=== PATIENT | male | born 1940 | race Two or more races ===

== ENCOUNTER 2018-05-13 18:44 | Inpatient (IN) | payer MEDICARE, BC, MEDICAID ==
--- NOTE | 2018-05-13 19:01 | ED Physician Chart ---
ED Chief Complaint/HPI - Patient Information Allergies:: Allergies Allergy/AdvReac Type Severity Reaction Status Date / Time hydrocodone Allergy Verified 05/13/18 18:52 Penicillins Allergy Verified 05/13/18 18:52 tetracycline Allergy Verified 05/13/18 18:52 <Imani Ballard - Last Filed: 05/13/18 18:58> - Patient Information Date Seen:: 05/13/18 Time Seen:: 19:40 Chief Complaint:: depression History of Present Illness:: 77 yr old male with hx of diabetes parkinsons dz who is in a rehab facility [facility] with complaints of wrist slashes bilaterally and depression pt states his is mean and the kids do not visit him at the rehab place Allergies:: Allergies Allergy/AdvReac Type Severity Reaction Status Date / Time hydrocodone Allergy Verified 05/13/18 18:52 Penicillins Allergy Verified 05/13/18 18:52 tetracycline Allergy Verified 05/13/18 18:52 Vitals:: Vital Signs - 8 hr 05/13/18 18:53 Temp 97.4 F HR 77 RR 17 BP 143/58 O2 Sat % 98 <Kiara Canales - Last Filed: 05/13/18 20:06> ED Review of Systems - Review of Systems General/Constitutional: No fever Skin: Skin lesions (slashes wrists) Head: No headache Eyes: No loss of vision ENT: No earache Neck: No neck pain Cardio Vascular: No chest pain Pulmonary: No SOB GI: No nausea G/U: No dysuria Musculoskeletal: No bone or joint pain Psychiatric: Depression, Suicidal ideation Hematopoietic: No bruising Allergic/Immuno: No urticaria Neurological: No syncope <Kiara Canales - Last Filed: 05/13/18 20:06> ED Past Medical History - Past Medical History Past Medical History: HTN, DM, CAD Surgical History: CABG <Kiara Canales - Last Filed: 05/13/18 20:06> ED Physical Exam - Physical Examination General/Constitutional: Well-developed, well-nourished Head: Atraumatic Eyes: Lids, conjuctiva normal Neck: Nontender Respiratory: Nl effort/Exclusion, Clear to Auscultation Cardio Vascular: RRR GI: No tenderness/rebounding/guarding : No CVA tenderness Extremities: No tenderness or effusion Neuro/Psych: Alert/oriented <Kiara Canales - Last Filed: 05/13/18 20:06> ED Labs/Radiology/EKG Results - Lab Results Results: Laboratory Tests 05/13/18 05/13/18 19:30 19:30 WBC 6.7 RBC 4.61 Hgb 14.4 Hct 44.1 MCV 95.8 MCH 31.3 H MCHC Differential 32.7 RDW 14.7 Plt Count 215 MPV 7.1 Neutrophils % 68.8 Lymphocytes % 18.6 L Monocytes % 8.7 Eosinophils % 2.4 Basophils % 1.5 Sodium 134 L Potassium 4.0 Chloride 101 Carbon Dioxide 24.3 Anion Gap 12.7 BUN 21 Creatinine 0.6 L Est GFR ( Amer) TNP Est GFR (Non-Af Amer) TNP BUN/Creatinine Ratio 35.0 Glucose 134 H Calcium 9.4 Phosphorus 3.0 Magnesium 1.8 L Total Bilirubin 0.3 AST 12 L ALT 5 L Alkaline Phosphatase 81 Total Protein 6.6 Albumin 4.0 L Globulin 2.6 Albumin/Globulin Ratio 1.5 Acetaminophen < 10.0 L <Kiara Canales - Last Filed: 05/13/18 20:06> ED Assessment - Assessment General Assessment: EKG from 18:47:43 p.m. on 05/13/2018: normal sinus rhythm, flipped t wave in AVR and V1. <Imani Ballard - Last Filed: 05/13/18 18:58> ED Septic Shock - . Is Septic Shock (SBP<90, OR Lactate>4 mmol\L) present?: No <Imani Ballard - Last Filed: 05/13/18 18:58> - . Is Septic Shock (SBP<90, OR Lactate>4 mmol\L) present?: No - <6hrs of presentation: Vital Signs: Vital Signs - 8 hr 05/13/18 18:53 Temp 97.4 F HR 77 RR 17 BP 143/58 O2 Sat % 98 <Kiara Canales - Last Filed: 05/13/18 20:06> ED Reassessment (Disposition) - Diagnosis Diagnosis:: Suicidal ideation. Suicidal attempt <Imani Ballard - Last Filed: 05/13/18 18:58> - Reassessment Reassessment Condition:: Improved - Patient Disposition Discharge/Transfer:: Acute Care w/in this hosp <Kiara Canales - Last Filed: 05/13/18 20:06>
[2018-05-13 19:50] LABS: % BASOPHILS 1.5 % (0.0-2.0); % EOSINOPHILS 2.4 % (0.0-5.0); % LYMPHOCYTES 18.6 % (20.0-50.0); % MONOCYTES 8.7 % (2.0-10.0); % NEUTROPHILS 68.8 % (40.0-80.0); BASOPHILE ABSOLUTE 0.1 Th/cumm (0-0.2); EOSINOPHILE ABSOLUTE 0.2 Th/cmm (0.1-0.4); HEMATOCRIT 44.1 % (41.0-60); HEMOGLOBIN 14.4 gm/dL (12-16); LYMPHOCYTE ABSOLUTE 1.2 Th/cmm (1.5-3.0); MEAN CELL VOLUME 95.8 fl (80-99); MEAN CORPUSCULAR HEMOGLOBIN 31.3 pg (27.0-31.0); MEAN CORPUSCULAR HGB CONC 32.7 pg (28.0-36.0); MEAN PLATELET VOLUME 7.1 fl; MONOCYTE ABSOLUTE 0.6 Th/cmm (0.3-1.0); NEUTROPHILE ABSOLUTE 4.6 Th/cmm (1.8-8.0); PLATELET COUNT 215 Th/cmm (150-400); RED BLOOD COUNT 4.61 Mil/cmm (3.80-5.80); RED CELL DISTRIBUTION WIDTH 14.7 % (11.5-20.0); WHITE BLOOD COUNT 6.7 Th/cmm (4.8-10.8)
[2018-05-13 19:56] LABS: ACETAMINOPHEN < 10.0 ug/mL (10.0-30.0); ALB/GLOB RATIO 1.5 (1.0-1.8); ALKALINE PHOSPHATASE 81 U/L (34-104); ANION GAP 12.7 (7.0-16.0); BILIRUBIN,TOTAL 0.3 mg/dL (0.3-1.0); BUN - UREA NITROGEN 21 mg/dL (7-25); CALCIUM SERUM 9.4 mg/dL (8.6-10.3); CARBON DIOXIDE 24.3 mEq/L (21.0-31.0); CHLORIDE 101 mEq/L (98-107); CREATININE - SERUM 0.6 mg/dL (0.7-1.3); GLUCOSE 134 mg/dL (70-105); MAGNESIUM 1.8 mg/dL (1.9-2.7); SGOT 12 U/L (13-39); SGPT/ALT 5 U/L (7-52); SODIUM SERUM 134 mEq/L (136-145); TOTAL PROTEIN,SERUM 6.6 gm/dL (6.0-8.3)
[2018-05-13 20:52] LABS: URINE SOURCE CLEAN C
[2018-05-13 21:01] LABS: URINE BILIRUBIN NEGATIVE (NEGATIVE); URINE BLOOD NEGATIVE (NEGATIVE); URINE GLUCOSE (UA) >=1000 mg/dL (NEGATIVE); URINE KETONE NEGATIVE (NEGATIVE); URINE LEUKOCYTE ESTERASE NEGATIVE (NEGATIVE); URINE MICROSCOPIC INDICATED? YES; URINE NITRATE NEGATIVE (NEGATIVE); URINE PH 6.5 (4.6 - 8.0); URINE PROTEIN NEGATIVE (NEGATIVE); URINE UROBILINOGEN 0.2 E.U./dL (0.2 - 1.0)
[2018-05-13 21:39] LABS: AMPHETAMINE URINE NEGATIVE (NEGATIVE); BARBITURATES URINE NEGATIVE (NEGATIVE); BENZODIAZEPINES QUAL URINE NEGATIVE (NEGATIVE); CANNABINOID THC NEGATIVE (NEGATIVE); COCAINE METABOLITE QUAL URINE NEGATIVE (NEGATIVE); METHADONE URINE NEGATIVE (NEGATIVE); METHAMPHETAMINES QUAL URINE NEGATIVE (NEGATIVE); OPIATES (MORPHINE) QUAL. URINE NEGATIVE (NEGATIVE); PHENCYCLIDINE (PCP) URINE NEGATIVE (NEGATIVE); TRICYCLICS (TCA) QUAL. URINE NEGATIVE (NEGATIVE)
[2018-05-13 21:40] LABS: URINE CLARITY CLEAR (CLEAR); URINE COLOR YELLOW
[2018-05-13 21:43] LABS: URINE BACTERIA OCCASIONAL /hpf (NONE SEEN); URINE EPITHELIAL CELLS OCCASIONAL /lpf (FEW); URINE WBC 0-2 /hpf (0-5)
[2018-05-13 22:48] VITALS: BP 144/82
[2018-05-14] MEDS ORDERED: Magnesium Hydroxide (MOM) 30 mL UDC PO PRN (01:32)
[2018-05-14] MEDS: INSULIN ASPART SLIDING SCALE 100 UNITS/ML UNIT SUBQ SCH ×2 (06:30→16:04)
[2018-05-14 07:28] LABS: CHOLESTEROL 159 mg/dL (<200); HDL -HIGH DENSITY LIPOPROTEIN 39 mg/dL (23-92); TRIGLYCERIDES 89 mg/dL (<150)
[2018-05-14] MEDS ORDERED: INSULIN ASPART, RECOMBINANT 100 UNITS/ML SUBQ SCH (07:30)
[2018-05-14] MEDS ORDERED: CANAGLIFLOZIN 100 MG PO SCH (09:00)
[2018-05-14] MEDS ORDERED: Non-Formulary Item 1 EA (Amino Acids/Protein Hydrolys [Pro-Stat Awc Liquid] 30 ML) PO SCH (09:00)
[2018-05-14] MEDS: Rivastigmine 4.6 mg/24 hr Tdm TD SCH (09:59)
[2018-05-14] MEDS: Aspirin 81mg Chewable Tab PO SCH (09:59)
--- NOTE | 2018-05-14 19:13 | History & Physical ---
ADMIT DATE: 05/14/2018 HISTORY OF PRESENT ILLNESS: A 77-year-old male patient with a history of diabetes, history of Parkinson's who came from [facility] complaining of wrist slashes bilaterally, depression, and the patient was admitted. Also, known to have a history of hypertension, diabetes, coronary artery disease, and history of . PHYSICAL EXAMINATION: GENERAL: Well-nourished, well-developed male patient. VITAL SIGNS: Stable. HEAD: Normal. ENT: Normal. NECK: Supple, nontender. LUNGS: Clear. CARDIOVASCULAR: S1, S2 heard. ABDOMEN: Soft. Bowel sounds are heard. DIAGNOSTIC DATA: EKG normal sinus rhythm. DIAGNOSES: Suicidal attempt, suicidal ideation, severe depression. PLAN: The patient is being admitted to the Geropsych Unit, where I will be following the patient along with the psychiatrist. JOB# [id number]
--- NOTE | 2018-05-15 00:08 | Psychiatric Evaluation ---
DATE OF SERVICE: JUSTIFICATION FOR HOSPITALIZATION: The patient cut his wrists in a suicide effort. CHIEF COMPLAINT: "I was very depressed." HISTORY OF PRESENT ILLNESS: A 77-year-old male with history of diabetes, Parkinson's disease and on previous psych admissions was in a rehab facility at [facility]. He cut his wrists bilaterally due to severe depression. His telling him to "do what the Veterans are doing alluding to suicide." The patient notes hopelessness, despair "my really hurt me," noting that "she hates my guts." The patient is feeling lonely, feeling hopeless, feeling helpless. The patient noting his just wants "my pension money." Sleep is fair. Appetite is fair, endorsing psychological distress, turmoil. PAST PSYCHIATRIC HISTORY: He has been feeling depressed for quite some time. FAMILY HISTORY: Noncontributory. SOCIAL HISTORY: Born in [place], for 40 years. He has 4 children, one of whom is unfortunately. No drugs, no alcohol, no tobacco. The patient had been in the rehabilitation. MEDICATIONS: Noted. MENTAL STATUS EXAMINATION: Stated age. Fair eye contact. Speech within normal limits. Mood depressed. Affect withdrawn. Thought processes were grossly linear. ASSESSMENT: The patient status post suicide effort. No HI. No current psychotic symptoms. Insight diminished. Judgment diminished. Impulse control poor. PROVISIONAL DIAGNOSES: Major depression, single, severe, also anxiety, unspecified. Under medical please see full H and P. ESTIMATED LENGTH OF STAY: 5-7 days. ASSESSMENT: The patient tried to hurt himself, cut himself, remains depressed, upset, discord with , feeling hopeless, helpless and despairing. PLAN: We will continue to monitor and initiate antidepressant medications. Treatment plan includes group as well as milieu therapy. CONDITION FOR DISCHARGE: Improved mood, improved affect, cessation of any SI, better coping. JOB# [id number]
[2018-05-15] MEDS: INSULIN ASPART SLIDING SCALE 100 UNITS/ML UNIT SUBQ SCH ×2 (06:32→18:40)
[2018-05-15] MEDS: Escitalopram Oxalate 5 mg Tab PO SCH (09:49)
[2018-05-15] MEDS: Aspirin 81mg Chewable Tab PO SCH (09:51)
[2018-05-15] MEDS: Rivastigmine 4.6 mg/24 hr Tdm TD SCH (09:52)
--- NOTE | 2018-05-15 15:50 | Progress Notes ---
DATE: 05/15/2018 SUBJECTIVE: A 77-year-old male cut his wrists in a suicide for noting he wanted to "get back to his ." Notes that she is very cruel with him and wants his money and his house and he refuses to divorce her, believing that if he tries to divorce her, lose his assets whether she tries to divorce him that " ____ I will be able to retain them." I let him know that this is likely not true given the laws revolving around community property, but he does not believe me. The patient does need okay sleep, okay appetite, convinced that is after the house and after his jail. "My hates me." The patient feels lonely, upset, still angry. PAST PSYCHIATRIC HISTORY: Depression. SOCIAL HISTORY: Noted. MEDICATIONS: Noted. MENTAL STATUS EXAMINATION: Stated age. Fair eye contact. Appearing depressed, withdrawn, ongoing concerns about suicidality. PLAN: We will continue to monitor dose and titrate medications. Ongoing concerns about safety given his very recent suicide effort, ongoing anger toward . JOB# [id number]
--- NOTE | 2018-05-15 20:11 | Internal Medicine Prog Note ---
Internal Medicine Subjective - Subjective Service Date: 05/15/18 Patient seen and examined:: with staff Patient is:: awake Per staff patient has:: no adverse event Internal Medicine Objective - Results Result Diagrams: 05/13/18 19:30 05/13/18 19:30 Recent Labs: Laboratory Last Values WBC 6.7 Th/cmm (4.8-10.8) 05/13/18 19:30 RBC 4.61 Mil/cmm (3.80-5.80) 05/13/18 19:30 Hgb 14.4 gm/dL (12-16) 05/13/18 19:30 Hct 44.1 % (41.0-60) 05/13/18 19:30 MCV 95.8 fl (80-99) 05/13/18 19:30 MCH 31.3 pg (27.0-31.0) H 05/13/18 19:30 MCHC Differential 32.7 pg (28.0-36.0) 05/13/18 19:30 RDW 14.7 % (11.5-20.0) 05/13/18 19:30 Plt Count 215 Th/cmm (150-400) 05/13/18 19:30 MPV 7.1 fl 05/13/18 19:30 Neutrophils % 68.8 % (40.0-80.0) 05/13/18 19:30 Lymphocytes % 18.6 % (20.0-50.0) L 05/13/18 19:30 Monocytes % 8.7 % (2.0-10.0) 05/13/18 19:30 Eosinophils % 2.4 % (0.0-5.0) 05/13/18 19:30 Basophils % 1.5 % (0.0-2.0) 05/13/18 19:30 Sodium 134 mEq/L (136-145) L 05/13/18 19:30 Potassium 4.0 mEq/L (3.5-5.1) 05/13/18 19:30 Chloride 101 mEq/L (98-107) 05/13/18 19:30 Carbon Dioxide 24.3 mEq/L (21.0-31.0) 05/13/18 19:30 Anion Gap 12.7 (7.0-16.0) 05/13/18 19:30 BUN 21 mg/dL (7-25) 05/13/18 19:30 Creatinine 0.6 mg/dL (0.7-1.3) L 05/13/18 19:30 Est GFR ( Amer) TNP 05/13/18 19:30 Est GFR (Non-Af Amer) TNP 05/13/18 19:30 BUN/Creatinine Ratio 35.0 05/13/18 19:30 Glucose 134 mg/dL (70-105) H 05/13/18 19:30 POC Glucose 83 MG/DL (70 - 105) 05/14/18 05:51 Calcium 9.4 mg/dL (8.6-10.3) 05/13/18 19:30 Phosphorus 3.0 mg/dL (2.5-5.0) 05/13/18 19:30 Magnesium 1.8 mg/dL (1.9-2.7) L 05/13/18 19:30 Total Bilirubin 0.3 mg/dL (0.3-1.0) 05/13/18 19:30 AST 12 U/L (13-39) L 05/13/18 19:30 ALT 5 U/L (7-52) L 05/13/18 19:30 Alkaline Phosphatase 81 U/L (34-104) 05/13/18 19:30 Total Protein 6.6 gm/dL (6.0-8.3) 05/13/18 19:30 Albumin 4.0 gm/dL (4.2-5.5) L 05/13/18 19:30 Globulin 2.6 gm/dL 05/13/18 19:30 Albumin/Globulin Ratio 1.5 (1.0-1.8) 05/13/18 19:30 Triglycerides 89 mg/dL (<150) 05/14/18 06:30 Cholesterol 159 mg/dL (<200) 05/14/18 06:30 LDL Cholesterol Direct 116 mg/dL (75-193) 05/14/18 06:30 HDL Cholesterol 39 mg/dL (23-92) 05/14/18 06:30 Urine Source CLEAN C 05/13/18 20:30 Urine Color YELLOW 05/13/18 20:30 Urine Clarity CLEAR (CLEAR) 05/13/18 20:30 Urine pH 6.5 (4.6 - 8.0) 05/13/18 20:30 Ur Specific [place] 1.015 (1.005-1.030) 05/13/18 20:30 Urine Protein NEGATIVE mg/dL (NEGATIVE) 05/13/18 20:30 Urine Glucose (UA) >=1000 mg/dL (NEGATIVE) H 05/13/18 20:30 Urine Ketones NEGATIVE mg/dL (NEGATIVE) 05/13/18 20:30 Urine Blood NEGATIVE (NEGATIVE) 05/13/18 20:30 Urine Nitrate NEGATIVE (NEGATIVE) 05/13/18 20:30 Urine Bilirubin NEGATIVE (NEGATIVE) 05/13/18 20:30 Urine Urobilinogen 0.2 E.U./dL (0.2 - 1.0) 05/13/18 20:30 Ur Leukocyte Esterase NEGATIVE (NEGATIVE) 05/13/18 20:30 Urine WBC 0-2 /hpf (0-5) 05/13/18 20:30 Ur Epithelial Cells OCCASIONAL /lpf (FEW) 05/13/18 20:30 Urine Bacteria OCCASIONAL /hpf (NONE SEEN) 05/13/18 20:30 Urine Mucus FEW /lpf (FEW) 05/13/18 20:30 Urine Opiates Screen NEGATIVE (NEGATIVE) 05/13/18 20:30 Urine Methadone Screen NEGATIVE (NEGATIVE) 05/13/18 20:30 Acetaminophen < 10.0 ug/mL (10.0-30.0) L 05/13/18 19:30 Ur Barbiturates Screen NEGATIVE (NEGATIVE) 05/13/18 20:30 Ur Tricyclics Screen NEGATIVE (NEGATIVE) 05/13/18 20:30 Ur Phencyclidine Scrn NEGATIVE (NEGATIVE) 05/13/18 20:30 Amphetamines Screen NEGATIVE (NEGATIVE) 05/13/18 20:30 U Methamphetamines Scrn NEGATIVE (NEGATIVE) 05/13/18 20:30 U Benzodiazepines Scrn NEGATIVE (NEGATIVE) 05/13/18 20:30 U Cocaine Metab Screen NEGATIVE (NEGATIVE) 05/13/18 20:30 U Cannabinoids Screen NEGATIVE (NEGATIVE) 05/13/18 20:30 - Physical Exam Vitals and I&O: Vital Signs Temp 98.7 F 05/15/18 14:00 Pulse 81 05/15/18 14:00 Resp 20 05/15/18 14:00 BP 120/59 05/15/18 14:00 Pulse Ox 99 05/15/18 14:00 Intake & Output 05/15/18 05/15/18 05/16/18 06:59 18:59 06:59 Intake Total 240 1500 Balance 240 1500 Intake: Oral 240 1500 Other: # Voids 3 3 # Bowel Movements 0 0 Active Medications: Current Medications Acetaminophen (Tylenol) 650 mg PO Q4H PRN PRN Reason: Pain (Mild) Stop: 07/13/18 01:39 Allopurinol (Zyloprim) 300 mg PO DAILY [facility] Stop: 07/13/18 08:59 Last Admin: 05/15/18 09:52 Dose: 300 mg Aspirin (Aspirin Chewable) 81 mg PO DAILY [facility] Stop: 07/13/18 08:59 Last Admin: 05/15/18 09:51 Dose: 81 mg Carbidopa/Levodopa (Sinemet 25mg-100 Mg) 1 tab PO QID [facility] Stop: 07/13/18 08:59 Last Admin: 05/15/18 17:34 Dose: 1 tab Docusate Sodium (Colace) 100 mg PO BID [facility] Stop: 07/13/18 08:59 Last Admin: 05/15/18 17:34 Dose: 100 mg Escitalopram Oxalate (Lexapro) 5 mg PO DAILY [facility]; Protocol Stop: 07/14/18 08:59 Last Admin: 05/15/18 09:49 Dose: 5 mg Insulin Aspart (Novolog Insulin Sliding Scale) 0 units SUBQ BIDAC [facility]; Protocol Stop: 07/13/18 07:29 Last Admin: 05/15/18 18:40 Dose: Not Given Lorazepam (Ativan) 0.5 mg PO Q4HR PRN; Protocol PRN Reason: Anxiety Stop: 06/12/18 22:55 Magnesium Hydroxide (Milk Of Magnesia) 30 ml PO DAILY PRN PRN Reason: Constipation Stop: 07/13/18 01:31 Metformin HCl (Glucophage) 1,000 mg PO BIDWM [facility] Stop: 07/13/18 07:59 Last Admin: 05/15/18 17:35 Dose: 1,000 mg Miscellaneous (Canagliflozin [Invokana]) 100 mg PO DAILY [facility] Stop: 07/13/18 08:59 Rivastigmine (Exelon 4.6 Mg/24 Hr Tdm) 1 patch TD DAILY [facility] Stop: 07/13/18 08:59 Last Admin: 05/15/18 09:52 Dose: 1 patch Zolpidem Tartrate (Ambien) 5 mg PO HS PRN PRN Reason: Insomnia Stop: 07/12/18 22:55 Last Admin: 05/14/18 21:31 Dose: 5 mg General: alert HEENT: NC/AT, PERRLA Neck: Supple Lungs: CTAB Extremities: excoriation Neurological: alert Internal Medicine Assmt/Plan - Assessment Assessment: si depression - Plan Plan: monitor for safety continue current plan of care
[2018-05-16] MEDS: INSULIN ASPART SLIDING SCALE 100 UNITS/ML UNIT SUBQ SCH ×2 (06:30→17:04)
[2018-05-16] MEDS: Escitalopram Oxalate 5 mg Tab PO SCH (08:07)
[2018-05-16] MEDS: Aspirin 81mg Chewable Tab PO SCH (08:08)
[2018-05-16] MEDS: Rivastigmine 4.6 mg/24 hr Tdm TD SCH (08:09)
--- NOTE | 2018-05-16 12:08 | Progress Notes ---
DATE: 05/16/2018 SUBJECTIVE: The patient is currently in the hospital, cut his wrists in a suicide effort depressed, withdrawn, hopeless about his marriage, very upset with , mostly keeps to himself, fairly well oriented, isolative. It is unclear with a family involvement. He states his hates him and told him to kill himself, sleeping well, eating well. ASSESSMENT: The patient withdrawn, depressed, ongoing safety concerns given he tried to kill himself, cut his wrists, ongoing concerns about impulsivity. Continue Lexapro. Medications were noted. We will continue to monitor. We are also trying to confirm if the patient is able to go back to group home and will attempt to arrange a family session if possible. The patient notes he is estranged from his children. JOB# [id number]
--- NOTE | 2018-05-16 12:30 | General Progress Note ---
Subjective - Review of Systems Events since last encounter: patient awake withdrawn from others depressed with si Objective - Results Result Diagrams: 05/13/18 19:30 05/13/18 19:30 Recent Labs: Laboratory Last Values WBC 6.7 Th/cmm (4.8-10.8) 05/13/18 19:30 RBC 4.61 Mil/cmm (3.80-5.80) 05/13/18 19:30 Hgb 14.4 gm/dL (12-16) 05/13/18 19:30 Hct 44.1 % (41.0-60) 05/13/18 19:30 MCV 95.8 fl (80-99) 05/13/18 19:30 MCH 31.3 pg (27.0-31.0) H 05/13/18 19:30 MCHC Differential 32.7 pg (28.0-36.0) 05/13/18 19:30 RDW 14.7 % (11.5-20.0) 05/13/18 19:30 Plt Count 215 Th/cmm (150-400) 05/13/18 19:30 MPV 7.1 fl 05/13/18 19:30 Neutrophils % 68.8 % (40.0-80.0) 05/13/18 19:30 Lymphocytes % 18.6 % (20.0-50.0) L 05/13/18 19:30 Monocytes % 8.7 % (2.0-10.0) 05/13/18 19:30 Eosinophils % 2.4 % (0.0-5.0) 05/13/18 19:30 Basophils % 1.5 % (0.0-2.0) 05/13/18 19:30 Sodium 134 mEq/L (136-145) L 05/13/18 19:30 Potassium 4.0 mEq/L (3.5-5.1) 05/13/18 19:30 Chloride 101 mEq/L (98-107) 05/13/18 19:30 Carbon Dioxide 24.3 mEq/L (21.0-31.0) 05/13/18 19:30 Anion Gap 12.7 (7.0-16.0) 05/13/18 19:30 BUN 21 mg/dL (7-25) 05/13/18 19:30 Creatinine 0.6 mg/dL (0.7-1.3) L 05/13/18 19:30 Est GFR ( Amer) TNP 05/13/18 19:30 Est GFR (Non-Af Amer) TNP 05/13/18 19:30 BUN/Creatinine Ratio 35.0 05/13/18 19:30 Glucose 134 mg/dL (70-105) H 05/13/18 19:30 POC Glucose 96 MG/DL (70 - 105) 05/16/18 12:16 Calcium 9.4 mg/dL (8.6-10.3) 05/13/18 19:30 Phosphorus 3.0 mg/dL (2.5-5.0) 05/13/18 19:30 Magnesium 1.8 mg/dL (1.9-2.7) L 05/13/18 19:30 Total Bilirubin 0.3 mg/dL (0.3-1.0) 05/13/18 19:30 AST 12 U/L (13-39) L 05/13/18 19:30 ALT 5 U/L (7-52) L 05/13/18 19:30 Alkaline Phosphatase 81 U/L (34-104) 05/13/18 19:30 Total Protein 6.6 gm/dL (6.0-8.3) 05/13/18 19:30 Albumin 4.0 gm/dL (4.2-5.5) L 05/13/18 19:30 Globulin 2.6 gm/dL 05/13/18 19:30 Albumin/Globulin Ratio 1.5 (1.0-1.8) 05/13/18 19:30 Triglycerides 89 mg/dL (<150) 05/14/18 06:30 Cholesterol 159 mg/dL (<200) 05/14/18 06:30 LDL Cholesterol Direct 116 mg/dL (75-193) 05/14/18 06:30 HDL Cholesterol 39 mg/dL (23-92) 05/14/18 06:30 Urine Source CLEAN C 05/13/18 20:30 Urine Color YELLOW 05/13/18 20:30 Urine Clarity CLEAR (CLEAR) 05/13/18 20:30 Urine pH 6.5 (4.6 - 8.0) 05/13/18 20:30 Ur Specific [place] 1.015 (1.005-1.030) 05/13/18 20:30 Urine Protein NEGATIVE mg/dL (NEGATIVE) 05/13/18 20:30 Urine Glucose (UA) >=1000 mg/dL (NEGATIVE) H 05/13/18 20:30 Urine Ketones NEGATIVE mg/dL (NEGATIVE) 05/13/18 20:30 Urine Blood NEGATIVE (NEGATIVE) 05/13/18 20:30 Urine Nitrate NEGATIVE (NEGATIVE) 05/13/18 20:30 Urine Bilirubin NEGATIVE (NEGATIVE) 05/13/18 20:30 Urine Urobilinogen 0.2 E.U./dL (0.2 - 1.0) 05/13/18 20:30 Ur Leukocyte Esterase NEGATIVE (NEGATIVE) 05/13/18 20:30 Urine WBC 0-2 /hpf (0-5) 05/13/18 20:30 Ur Epithelial Cells OCCASIONAL /lpf (FEW) 05/13/18 20:30 Urine Bacteria OCCASIONAL /hpf (NONE SEEN) 05/13/18 20:30 Urine Mucus FEW /lpf (FEW) 05/13/18 20:30 Urine Opiates Screen NEGATIVE (NEGATIVE) 05/13/18 20:30 Urine Methadone Screen NEGATIVE (NEGATIVE) 05/13/18 20:30 Acetaminophen < 10.0 ug/mL (10.0-30.0) L 05/13/18 19:30 Ur Barbiturates Screen NEGATIVE (NEGATIVE) 05/13/18 20:30 Ur Tricyclics Screen NEGATIVE (NEGATIVE) 05/13/18 20:30 Ur Phencyclidine Scrn NEGATIVE (NEGATIVE) 05/13/18 20:30 Amphetamines Screen NEGATIVE (NEGATIVE) 05/13/18 20:30 U Methamphetamines Scrn NEGATIVE (NEGATIVE) 05/13/18 20:30 U Benzodiazepines Scrn NEGATIVE (NEGATIVE) 05/13/18 20:30 U Cocaine Metab Screen NEGATIVE (NEGATIVE) 05/13/18 20:30 U Cannabinoids Screen NEGATIVE (NEGATIVE) 05/13/18 20:30 - Physical Exam Vitals and I&O: Vital Signs Temp 98.7 F 05/16/18 06:36 Pulse 78 05/16/18 06:36 Resp 20 05/16/18 06:36 BP 127/62 05/16/18 06:36 Pulse Ox 96 05/16/18 06:36 Intake & Output 05/15/18 05/16/18 05/16/18 18:59 06:59 18:59 Intake Total 1500 240 Balance 1500 240 Intake: Oral 1500 240 Other: # Voids 3 4 # Bowel Movements 0 0 Active Medications: Current Medications Acetaminophen (Tylenol) 650 mg PO Q4H PRN PRN Reason: Pain (Mild) Stop: 07/13/18 01:39 Allopurinol (Zyloprim) 300 mg PO DAILY [facility] Stop: 07/13/18 08:59 Last Admin: 05/16/18 08:08 Dose: 300 mg Aspirin (Aspirin Chewable) 81 mg PO DAILY [facility] Stop: 07/13/18 08:59 Last Admin: 05/16/18 08:08 Dose: 81 mg Carbidopa/Levodopa (Sinemet 25mg-100 Mg) 1 tab PO QID [facility] Stop: 07/13/18 08:59 Last Admin: 05/16/18 08:07 Dose: 1 tab Docusate Sodium (Colace) 100 mg PO BID [facility] Stop: 07/13/18 08:59 Last Admin: 05/16/18 08:08 Dose: 100 mg Escitalopram Oxalate (Lexapro) 5 mg PO DAILY [facility]; Protocol Stop: 07/14/18 08:59 Last Admin: 05/16/18 08:07 Dose: 5 mg Insulin Aspart (Novolog Insulin Sliding Scale) 0 units SUBQ BIDAC [facility]; Protocol Stop: 07/13/18 07:29 Last Admin: 05/16/18 06:30 Dose: Not Given Lorazepam (Ativan) 0.5 mg PO Q4HR PRN; Protocol PRN Reason: Anxiety Stop: 06/12/18 22:55 Magnesium Hydroxide (Milk Of Magnesia) 30 ml PO DAILY PRN PRN Reason: Constipation Stop: 07/13/18 01:31 Metformin HCl (Glucophage) 1,000 mg PO BIDWM [facility] Stop: 07/13/18 07:59 Last Admin: 05/16/18 08:07 Dose: 1,000 mg Miscellaneous (Canagliflozin [Invokana]) 100 mg PO DAILY [facility] Stop: 07/13/18 08:59 Rivastigmine (Exelon 4.6 Mg/24 Hr Tdm) 1 patch TD DAILY [facility] Stop: 07/13/18 08:59 Last Admin: 05/16/18 08:09 Dose: 1 patch Zolpidem Tartrate (Ambien) 5 mg PO HS PRN PRN Reason: Insomnia Stop: 07/12/18 22:55 Last Admin: 05/15/18 20:32 Dose: 5 mg General: No acute distress HEENT: Atraumatic Neck: Supple Cardiovascular: Regular rate, Normal S1, Normal S2 Lungs: Clear to auscultation Abdomen: Bowel sounds Assessment/Plan - Problem List Patient Problems: All Active Problems SUICIDAL IDEATION/WRIST LACERATIONS (Acute) - Plan Plan: as pre psych will monitor
[2018-05-17] MEDS: INSULIN ASPART SLIDING SCALE 100 UNITS/ML UNIT SUBQ SCH ×2 (06:51→17:10)
[2018-05-17] MEDS: Aspirin 81mg Chewable Tab PO SCH (08:21)
[2018-05-17] MEDS: Rivastigmine 4.6 mg/24 hr Tdm TD SCH (08:22)
[2018-05-17] MEDS: Escitalopram Oxalate 5 mg Tab PO SCH (08:23)
--- NOTE | 2018-05-17 10:10 | General Progress Note ---
Subjective - Review of Systems Events since last encounter: patient with depressed mood in no distress Objective - Results Result Diagrams: 05/13/18 19:30 05/13/18 19:30 Recent Labs: Laboratory Last Values WBC 6.7 Th/cmm (4.8-10.8) 05/13/18 19:30 RBC 4.61 Mil/cmm (3.80-5.80) 05/13/18 19:30 Hgb 14.4 gm/dL (12-16) 05/13/18 19:30 Hct 44.1 % (41.0-60) 05/13/18 19:30 MCV 95.8 fl (80-99) 05/13/18 19:30 MCH 31.3 pg (27.0-31.0) H 05/13/18 19:30 MCHC Differential 32.7 pg (28.0-36.0) 05/13/18 19:30 RDW 14.7 % (11.5-20.0) 05/13/18 19:30 Plt Count 215 Th/cmm (150-400) 05/13/18 19:30 MPV 7.1 fl 05/13/18 19:30 Neutrophils % 68.8 % (40.0-80.0) 05/13/18 19:30 Lymphocytes % 18.6 % (20.0-50.0) L 05/13/18 19:30 Monocytes % 8.7 % (2.0-10.0) 05/13/18 19:30 Eosinophils % 2.4 % (0.0-5.0) 05/13/18 19:30 Basophils % 1.5 % (0.0-2.0) 05/13/18 19:30 Sodium 134 mEq/L (136-145) L 05/13/18 19:30 Potassium 4.0 mEq/L (3.5-5.1) 05/13/18 19:30 Chloride 101 mEq/L (98-107) 05/13/18 19:30 Carbon Dioxide 24.3 mEq/L (21.0-31.0) 05/13/18 19:30 Anion Gap 12.7 (7.0-16.0) 05/13/18 19:30 BUN 21 mg/dL (7-25) 05/13/18 19:30 Creatinine 0.6 mg/dL (0.7-1.3) L 05/13/18 19:30 Est GFR ( Amer) TNP 05/13/18 19:30 Est GFR (Non-Af Amer) TNP 05/13/18 19:30 BUN/Creatinine Ratio 35.0 05/13/18 19:30 Glucose 134 mg/dL (70-105) H 05/13/18 19:30 POC Glucose 79 MG/DL (70 - 105) 05/17/18 06:50 Calcium 9.4 mg/dL (8.6-10.3) 05/13/18 19:30 Phosphorus 3.0 mg/dL (2.5-5.0) 05/13/18 19:30 Magnesium 1.8 mg/dL (1.9-2.7) L 05/13/18 19:30 Total Bilirubin 0.3 mg/dL (0.3-1.0) 05/13/18 19:30 AST 12 U/L (13-39) L 05/13/18 19:30 ALT 5 U/L (7-52) L 05/13/18 19:30 Alkaline Phosphatase 81 U/L (34-104) 05/13/18 19:30 Total Protein 6.6 gm/dL (6.0-8.3) 05/13/18 19:30 Albumin 4.0 gm/dL (4.2-5.5) L 05/13/18 19:30 Globulin 2.6 gm/dL 05/13/18 19:30 Albumin/Globulin Ratio 1.5 (1.0-1.8) 05/13/18 19:30 Triglycerides 89 mg/dL (<150) 05/14/18 06:30 Cholesterol 159 mg/dL (<200) 05/14/18 06:30 LDL Cholesterol Direct 116 mg/dL (75-193) 05/14/18 06:30 HDL Cholesterol 39 mg/dL (23-92) 05/14/18 06:30 Urine Source CLEAN C 05/13/18 20:30 Urine Color YELLOW 05/13/18 20:30 Urine Clarity CLEAR (CLEAR) 05/13/18 20:30 Urine pH 6.5 (4.6 - 8.0) 05/13/18 20:30 Ur Specific [place] 1.015 (1.005-1.030) 05/13/18 20:30 Urine Protein NEGATIVE mg/dL (NEGATIVE) 05/13/18 20:30 Urine Glucose (UA) >=1000 mg/dL (NEGATIVE) H 05/13/18 20:30 Urine Ketones NEGATIVE mg/dL (NEGATIVE) 05/13/18 20:30 Urine Blood NEGATIVE (NEGATIVE) 05/13/18 20:30 Urine Nitrate NEGATIVE (NEGATIVE) 05/13/18 20:30 Urine Bilirubin NEGATIVE (NEGATIVE) 05/13/18 20:30 Urine Urobilinogen 0.2 E.U./dL (0.2 - 1.0) 05/13/18 20:30 Ur Leukocyte Esterase NEGATIVE (NEGATIVE) 05/13/18 20:30 Urine WBC 0-2 /hpf (0-5) 05/13/18 20:30 Ur Epithelial Cells OCCASIONAL /lpf (FEW) 05/13/18 20:30 Urine Bacteria OCCASIONAL /hpf (NONE SEEN) 05/13/18 20:30 Urine Mucus FEW /lpf (FEW) 05/13/18 20:30 Urine Opiates Screen NEGATIVE (NEGATIVE) 05/13/18 20:30 Urine Methadone Screen NEGATIVE (NEGATIVE) 05/13/18 20:30 Acetaminophen < 10.0 ug/mL (10.0-30.0) L 05/13/18 19:30 Ur Barbiturates Screen NEGATIVE (NEGATIVE) 05/13/18 20:30 Ur Tricyclics Screen NEGATIVE (NEGATIVE) 05/13/18 20:30 Ur Phencyclidine Scrn NEGATIVE (NEGATIVE) 05/13/18 20:30 Amphetamines Screen NEGATIVE (NEGATIVE) 05/13/18 20:30 U Methamphetamines Scrn NEGATIVE (NEGATIVE) 05/13/18 20:30 U Benzodiazepines Scrn NEGATIVE (NEGATIVE) 05/13/18 20:30 U Cocaine Metab Screen NEGATIVE (NEGATIVE) 05/13/18 20:30 U Cannabinoids Screen NEGATIVE (NEGATIVE) 05/13/18 20:30 - Physical Exam Vitals and I&O: Vital Signs Temp 97.7 F 05/17/18 06:31 Pulse 71 05/17/18 06:31 Resp 20 05/17/18 06:31 BP 129/63 05/17/18 06:31 Pulse Ox 95 05/17/18 06:31 Intake & Output 05/16/18 05/17/18 05/17/18 18:59 06:59 18:59 Intake Total 1000 120 Balance 1000 120 Intake: Oral 1000 120 Other: # Voids 3 3 # Bowel Movements 1 0 Active Medications: Current Medications Acetaminophen (Tylenol) 650 mg PO Q4H PRN PRN Reason: Pain (Mild) Stop: 07/13/18 01:39 Allopurinol (Zyloprim) 300 mg PO DAILY [facility] Stop: 07/13/18 08:59 Last Admin: 05/17/18 08:22 Dose: 300 mg Aspirin (Aspirin Chewable) 81 mg PO DAILY [facility] Stop: 07/13/18 08:59 Last Admin: 05/17/18 08:21 Dose: 81 mg Carbidopa/Levodopa (Sinemet 25mg-100 Mg) 1 tab PO QID [facility] Stop: 07/13/18 08:59 Last Admin: 05/17/18 08:22 Dose: 1 tab Docusate Sodium (Colace) 100 mg PO BID [facility] Stop: 07/13/18 08:59 Last Admin: 05/17/18 08:22 Dose: 100 mg Escitalopram Oxalate (Lexapro) 5 mg PO DAILY [facility]; Protocol Stop: 07/14/18 08:59 Last Admin: 05/17/18 08:23 Dose: 5 mg Insulin Aspart (Novolog Insulin Sliding Scale) 0 units SUBQ BIDAC [facility]; Protocol Stop: 07/13/18 07:29 Last Admin: 05/17/18 06:51 Dose: Not Given Lorazepam (Ativan) 0.5 mg PO Q4HR PRN; Protocol PRN Reason: Anxiety Stop: 06/12/18 22:55 Magnesium Hydroxide (Milk Of Magnesia) 30 ml PO DAILY PRN PRN Reason: Constipation Stop: 07/13/18 01:31 Metformin HCl (Glucophage) 1,000 mg PO BIDWM [facility] Stop: 07/13/18 07:59 Last Admin: 05/17/18 08:22 Dose: 1,000 mg Miscellaneous (Canagliflozin [Invokana]) 100 mg PO DAILY [facility] Stop: 07/13/18 08:59 Rivastigmine (Exelon 4.6 Mg/24 Hr Tdm) 1 patch TD DAILY [facility] Stop: 07/13/18 08:59 Last Admin: 05/17/18 08:22 Dose: 1 patch Zolpidem Tartrate (Ambien) 5 mg PO HS PRN PRN Reason: Insomnia Stop: 07/12/18 22:55 Last Admin: 05/16/18 21:11 Dose: 5 mg General: No acute distress HEENT: Atraumatic Neck: Supple Cardiovascular: Regular rate, Normal S1, Normal S2 Lungs: Clear to auscultation Abdomen: Bowel sounds Assessment/Plan - Problem List Patient Problems: All Active Problems SUICIDAL IDEATION/WRIST LACERATIONS (Acute) - Plan Plan: as pre psych will monitor
--- NOTE | 2018-05-17 17:59 | Progress Notes ---
DATE: 05/17/2018 SUBJECTIVE: The patient in the hospital cut her wrists in a suicide effort, noted to be upset, still withdrawn, estranged from family, states no one has come to visit him and this is a regular states his hates him and was badgering him to hurt himself. The patient is sleeping well, eating well, mostly in his room, not going to groups, not wanting to go to groups, noted to be withdrawn, flat affect, isolative, minimal interactions with peers. ASSESSMENT: The patient remains symptomatic, ongoing safety concerns, concerns about underlying suicidality, hopeless thoughts. PLAN: We will continue to monitor, titrate and adjust medications. We are trying also to see if there is any confirmation that he can go back to long-term facility. JOB# [id number]
[2018-05-18] MEDS: INSULIN ASPART SLIDING SCALE 100 UNITS/ML UNIT SUBQ SCH ×2 (07:24→17:10)
[2018-05-18] MEDS: Rivastigmine 4.6 mg/24 hr Tdm TD SCH (09:11)
[2018-05-18] MEDS: Escitalopram Oxalate 5 mg Tab PO SCH (09:13)
[2018-05-18] MEDS: Aspirin 81mg Chewable Tab PO SCH (09:14)
--- NOTE | 2018-05-18 12:50 | Progress Notes ---
DATE: 05/18/2018 SUBJECTIVE: The patient is sleeping, but arousable, somewhat irritable this morning, oriented to self, place. He knows why he is here, noted to be withdrawn and isolative. He cut himself quite badly in a fci in a suicide effort, still very upset with , estranged from , estrangement from family. Sleeping fairly well, eating well, mostly keeps to himself. ASSESSMENT: Some confusion noted, still upset, upset with and estranged from family and depressed. Ongoing safety concerns given that he cut himself quite badly in a suicide effort and remains pretty isolative. PLAN: We will titrate dosing of Lexapro. Medications were reviewed. JOB# [id number]
--- NOTE | 2018-05-18 21:17 | Internal Medicine Prog Note ---
Internal Medicine Subjective - Subjective Service Date: 05/18/18 Patient is:: awake Per staff patient has:: no adverse event Internal Medicine Objective - Results Result Diagrams: 05/13/18 19:30 05/13/18 19:30 Recent Labs: Laboratory Last Values WBC 6.7 Th/cmm (4.8-10.8) 05/13/18 19:30 RBC 4.61 Mil/cmm (3.80-5.80) 05/13/18 19:30 Hgb 14.4 gm/dL (12-16) 05/13/18 19:30 Hct 44.1 % (41.0-60) 05/13/18 19:30 MCV 95.8 fl (80-99) 05/13/18 19:30 MCH 31.3 pg (27.0-31.0) H 05/13/18 19:30 MCHC Differential 32.7 pg (28.0-36.0) 05/13/18:30 RDW 14.7 % (11.5-20.0) 05/13/18:30 Plt Count 215 Th/cmm (150-400) 05/13/18 19:30 MPV 7.1 fl 05/13/18 19:30 Neutrophils % 68.8 % (40.0-80.0) 05/13/18 19:30 Lymphocytes % 18.6 % (20.0-50.0) L 05/13/18 19:30 Monocytes % 8.7 % (2.0-10.0) 05/13/18:30 Eosinophils % 2.4 % (0.0-5.0) 05/13/18 19:30 Basophils % 1.5 % (0.0-2.0) 05/13/18 19:30 Sodium 134 mEq/L (136-145) L 05/13/18 19:30 Potassium 4.0 mEq/L (3.5-5.1) 05/13/18 19:30 Chloride 101 mEq/L (98-107) 05/13/18 19:30 Carbon Dioxide 24.3 mEq/L (21.0-31.0) 05/13/18 19:30 Anion Gap 12.7 (7.0-16.0) 05/13/18 19:30 BUN 21 mg/dL (7-25) 09/09/18 19:30 Creatinine 0.6 mg/dL (0.7-1.3) L 05/13/18 19:30 Est GFR ( Amer) TNP 05/13/18 19:30 Est GFR (Non-Af Amer) TNP 05/13/18 19:30 BUN/Creatinine Ratio 35.0 05/13/18 19:30 Glucose 134 mg/dL (70-105) H 05/13/18 19:30 POC Glucose 90 MG/DL (70 - 105) 05/18/18 16:50 Calcium 9.4 mg/dL (8.6-10.3) 05/13/18 19:30 Phosphorus 3.0 mg/dL (2.5-5.0) 05/13/18 19:30 Magnesium 1.8 mg/dL (1.9-2.7) L 05/13/18 19:30 Total Bilirubin 0.3 mg/dL (0.3-1.0) 05/13/18 19:30 AST 12 U/L (13-39) L 05/13/18 19:30 ALT 5 U/L (7-52) L 05/13/18 19:30 Alkaline Phosphatase 81 U/L (34-104) 05/13/18 19:30 Total Protein 6.6 gm/dL (6.0-8.3) 05/13/18 19:30 Albumin 4.0 gm/dL (4.2-5.5) L 05/13/18 19:30 Globulin 2.6 gm/dL 05/13/18 19:30 Albumin/Globulin Ratio 1.5 (1.0-1.8) 05/13/18 19:30 Triglycerides 89 mg/dL (<150) 05/14/18 06:30 Cholesterol 159 mg/dL (<200) 05/14/18 06:30 LDL Cholesterol Direct 116 mg/dL (75-193) 05/14/18 06:30 HDL Cholesterol 39 mg/dL (23-92) 05/14/18 06:30 Urine Source CLEAN C 05/13/18 20:30 Urine Color YELLOW 05/13/18 20:30 Urine Clarity CLEAR (CLEAR) 05/13/18 20:30 Urine pH 6.5 (4.6 - 8.0) 05/13/18 20:30 Ur Specific [place] 1.015 (1.005-1.030) 05/13/18 20:30 Urine Protein NEGATIVE mg/dL (NEGATIVE) 05/13/18 20:30 Urine Glucose (UA) >=1000 mg/dL (NEGATIVE) H 05/13/18 20:30 Urine Ketones NEGATIVE mg/dL (NEGATIVE) 05/13/18 20:30 Urine Blood NEGATIVE (NEGATIVE) 05/13/18 20:30 Urine Nitrate NEGATIVE (NEGATIVE) 05/13/18 20:30 Urine Bilirubin NEGATIVE (NEGATIVE) 05/13/18 20:30 Urine Urobilinogen 0.2 E.U./dL (0.2 - 1.0) 05/13/18 20:30 Ur Leukocyte Esterase NEGATIVE (NEGATIVE) 05/13/18 20:30 Urine WBC 0-2 /hpf (0-5) 05/13/18 20:30 Ur Epithelial Cells OCCASIONAL /lpf (FEW) 05/13/18 20:30 Urine Bacteria OCCASIONAL /hpf (NONE SEEN) 05/13/18 20:30 Urine Mucus FEW /lpf (FEW) 05/13/18 20:30 Urine Opiates Screen NEGATIVE (NEGATIVE) 05/13/18 20:30 Urine Methadone Screen NEGATIVE (NEGATIVE) 05/13/18 20:30 Acetaminophen < 10.0 ug/mL (10.0-30.0) L 05/13/18 19:30 Ur Barbiturates Screen NEGATIVE (NEGATIVE) 05/13/18 20:30 Ur Tricyclics Screen NEGATIVE (NEGATIVE) 05/13/18 20:30 Ur Phencyclidine Scrn NEGATIVE (NEGATIVE) 05/13/18 20:30 Amphetamines Screen NEGATIVE (NEGATIVE) 05/13/18 20:30 U Methamphetamines Scrn NEGATIVE (NEGATIVE) 05/13/18 20:30 U Benzodiazepines Scrn NEGATIVE (NEGATIVE) 05/13/18 20:30 U Cocaine Metab Screen NEGATIVE (NEGATIVE) 05/13/18 20:30 U Cannabinoids Screen NEGATIVE (NEGATIVE) 05/13/18 20:30 - Physical Exam Vitals and I&O: Vital Signs Temp 98.1 F 05/18/18 21:12 Pulse 63 05/18/18 21:12 Resp 18 05/18/18 21:12 BP 127/58 05/18/18 21:12 Pulse Ox 93 05/18/18 21:12 Intake & Output 05/18/18 05/18/18 05/19/18 06:59 18:59 06:59 Intake Total 1200 240 Balance 1200 240 Intake: Oral 1200 240 Other: # Voids 2 # Bowel Movements 1 Active Medications: Current Medications Acetaminophen (Tylenol) 650 mg PO Q4H PRN PRN Reason: Pain (Mild) Stop: 07/13/18 01:39 Allopurinol (Zyloprim) 300 mg PO DAILY [facility] Stop: 07/13/18 08:59 Last Admin: 05/18/18 09:12 Dose: 300 mg Aspirin (Aspirin Chewable) 81 mg PO DAILY [facility] Stop: 07/13/18 08:59 Last Admin: 05/18/18 09:14 Dose: 81 mg Carbidopa/Levodopa (Sinemet 25mg-100 Mg) 1 tab PO QID [facility] Stop: 07/13/18 08:59 Last Admin: 05/18/18 17:11 Dose: 1 tab Docusate Sodium (Colace) 100 mg PO BID [facility] Stop: 07/13/18 08:59 Last Admin: 05/18/18 17:11 Dose: 100 mg Escitalopram Oxalate (Lexapro) 7.5 mg PO DAILY [facility]; Protocol Stop: 07/17/18 08:59 Last Admin: 05/18/18 09:13 Dose: 7.5 mg Insulin Aspart (Novolog Insulin Sliding Scale) 0 units SUBQ BIDAC [facility]; Protocol Stop: 07/13/18 07:29 Last Admin: 05/18/18 17:10 Dose: Not Given Lorazepam (Ativan) 0.5 mg PO Q4HR PRN; Protocol PRN Reason: Anxiety Stop: 06/12/18 22:55 Magnesium Hydroxide (Milk Of Magnesia) 30 ml PO DAILY PRN PRN Reason: Constipation Stop: 07/13/18 01:31 Metformin HCl (Glucophage) 1,000 mg PO BIDWM [facility] Stop: 07/13/18 07:59 Last Admin: 05/18/18 17:16 Dose: 1,000 mg Miscellaneous (Canagliflozin [Invokana]) 100 mg PO DAILY [facility] Stop: 07/13/18 08:59 Rivastigmine (Exelon 4.6 Mg/24 Hr Tdm) 1 patch TD DAILY [facility] Stop: 07/13/18 08:59 Last Admin: 05/18/18 09:11 Dose: 1 patch Zolpidem Tartrate (Ambien) 5 mg PO HS PRN PRN Reason: Insomnia Stop: 07/12/18 22:55 Last Admin: 05/16/18 21:11 Dose: 5 mg General: alert HEENT: NC/AT, PERRLA Neck: Supple Lungs: CTAB Extremities: excoriation Neurological: alert Internal Medicine Assmt/Plan - Assessment Assessment: si depression - Plan Plan: monitor for safety continue current plan of care Nutritional Asmnt/Malnutr-PDOC - Dietary Evaluation Malnutrition Findings (Please click <Entered> for more info): Nutritional Asmnt/Malnutrition Start: 05/17/18 14: 11 Text: Status: Complete Freq: Protocol: Document 05/17/18 14:12 EZEQUIEL (Rec: 05/17/18 14:20 [email or web address] [id number]) Nutritional Asmnt/Malnutrition Patient General Information Nutritional Screening Moderate Risk Diagnosis suicidal ideation Pertinent Medical Hx/Surgical Hx DM, parkinson Subjective Information Pt seen sleeping in bed at time of visit. Per EMR, PO intake 100%. Current Diet Order/ Nutrition Support low sodium, NCS Pertinent Medications colace, novolog, glucophage Pertinent Labs 05/13 na 134, Cr 0.6, alb 4.0, mg 1.8 05/14-05/17 POC 79-91 Nutritional Hx/Data Height 6 ft Height (Calculated Centimeters) 182.9 Current Weight (lbs) 179 lb Weight (Calculated Kilograms) 81.2 Weight (Calculated Grams) 77691.0 [place] Body Weight 178 % [place] Body Weight 100 Body Mass Index (BMI) 24.3 GI Symptoms GI Symptoms None Last BM 05/16 Difficult in: None Skin Integrity/Comment: laceration to right wrist Current %PO Good (75-100%) Estimated Nutritional Goals BEE in Kcals: Using Current wt Calories/Kcals/Kg 25-30 Kcals Calculated Protein: Using Current wt Protein g/k Protein Calculated 81 Fluid: ml Nutritional Problem 1. Problem Problem altered nutrition related labs Etiology electrolytes imbalance Signs/Symptoms: Na 134, mg 1.8 Malnutrition Alert Is there a minimum of two criteria No selected? Query Text:Check all the applicable criteria. A minimum of two criteria are recommended for diagnosis of either severe or non-severe malnutrition. Malnutrition Related to Morbid Obesity Malnutrition related to morbid obesity No Intervention/Recommendation Comments 1. Continue with low sodium and NCS diet as ordered. May consider discontinue NCS diet if glucose continue WNL. 2. Monitor PO intake, wt, labs and skin integrity 3. F/U as low risk in 7 days, 05/24 Expected Outcomes/Goals Expected Outcomes/Goals 1. PO intake to meet at least 75% of nutritional needs. 2. Wt stability, skin to remain intact, labs to approach WNL.
[2018-05-19] MEDS: INSULIN ASPART SLIDING SCALE 100 UNITS/ML UNIT SUBQ SCH ×2 (06:45→16:37)
[2018-05-19] MEDS: Aspirin 81mg Chewable Tab PO SCH (09:03)
[2018-05-19] MEDS: Rivastigmine 4.6 mg/24 hr Tdm TD SCH (10:05)
[2018-05-19] MEDS: Escitalopram Oxalate 5 mg Tab PO SCH (10:05)
--- NOTE | 2018-05-19 19:11 | Progress Notes ---
DATE: 05/17/2018 SUBJECTIVE: The patient was seen in his room. Per patient, he felt better now. Denies any depression, delusion, paranoia. Denies any suicidal or homicidal thoughts. The patient appears to be in no acute distress. OBJECTIVE: VITAL SIGNS: Temperature 97.5, heart rate of 69, blood pressure 134/63, respiration of 18 and 94% on room air. HEENT: Head is atraumatic and normocephalic. Eyes: Bilateral conjunctivae are clear. Bilateral pupils are equally round and reactive. NECK: Supple. No JVD. CARDIOVASCULAR: S1 and S2, without murmur. PULMONARY: Clear to auscultation. GASTROINTESTINAL: Soft and nontender without guarding. Positive bowel sounds. MUSCULOSKELETAL: No clubbing. No cyanosis noted. ASSESSMENT: 1. Major depression disorder. 2. Osteoarthritis. 3. Gout. 4. Parkinson's disease. 5. Diabetes. PLAN: We will keep the patient inpatient and will have the psychiatrist do reevaluation of the patient's behavior and mood. Treatment plans were discussed with the patient's nurse. Treatment plans were discussed with Dr. Campbell. JOB# [id number]
[2018-05-20] MEDS: INSULIN ASPART SLIDING SCALE 100 UNITS/ML UNIT SUBQ SCH ×2 (06:32→16:35)
[2018-05-20] MEDS: Escitalopram Oxalate 5 mg Tab PO SCH (08:56)
[2018-05-20] MEDS: Aspirin 81mg Chewable Tab PO SCH (08:57)
[2018-05-20] MEDS: Rivastigmine 4.6 mg/24 hr Tdm TD SCH (08:59)
--- NOTE | 2018-05-20 12:27 | General Progress Note ---
Subjective - Review of Systems Events since last encounter: patient awake alert denies depression with si states feeling better Objective - Results Result Diagrams: 05/13/18 19:30 05/13/18 19:30 Recent Labs: Laboratory Last Values WBC 6.7 Th/cmm (4.8-10.8) 05/13/18 19:30 RBC 4.61 Mil/cmm (3.80-5.80) 05/13/18 19:30 Hgb 14.4 gm/dL (12-16) 05/13/18 19:30 Hct 44.1 % (41.0-60) 05/13/18 19:30 MCV 95.8 fl (80-99) 05/13/18 19:30 MCH 31.3 pg (27.0-31.0) H 05/13/18 19:30 MCHC Differential 32.7 pg (28.0-36.0) 05/13/18 19:30 RDW 14.7 % (11.5-20.0) 05/13/18 19:30 Plt Count 215 Th/cmm (150-400) 05/13/18 19:30 MPV 7.1 fl 05/13/18 19:30 Neutrophils % 68.8 % (40.0-80.0) 05/13/18 19:30 Lymphocytes % 18.6 % (20.0-50.0) L 05/13/18 19:30 Monocytes % 8.7 % (2.0-10.0) 05/13/18 19:30 Eosinophils % 2.4 % (0.0-5.0) 05/13/18 19:30 Basophils % 1.5 % (0.0-2.0) 05/13/18 19:30 Sodium 134 mEq/L (136-145) L 05/13/18 19:30 Potassium 4.0 mEq/L (3.5-5.1) 05/13/18 19:30 Chloride 101 mEq/L (98-107) 05/13/18 19:30 Carbon Dioxide 24.3 mEq/L (21.0-31.0) 05/13/18 19:30 Anion Gap 12.7 (7.0-16.0) 05/13/18 19:30 BUN 21 mg/dL (7-25) 05/13/18 19:30 Creatinine 0.6 mg/dL (0.7-1.3) L 05/13/18 19:30 Est GFR ( Amer) TNP 05/13/18 19:30 Est GFR (Non-Af Amer) TNP 05/13/18 19:30 BUN/Creatinine Ratio 35.0 05/13/18 19:30 Glucose 134 mg/dL (70-105) H 05/13/18 19:30 POC Glucose 81 MG/DL (70 - 105) 05/20/18 06:09 Calcium 9.4 mg/dL (8.6-10.3) 05/13/18 19:30 Phosphorus 3.0 mg/dL (2.5-5.0) 05/13/18 19:30 Magnesium 1.8 mg/dL (1.9-2.7) L 05/13/18 19:30 Total Bilirubin 0.3 mg/dL (0.3-1.0) 05/13/18 19:30 AST 12 U/L (13-39) L 05/13/18 19:30 ALT 5 U/L (7-52) L 05/13/18 19:30 Alkaline Phosphatase 81 U/L (34-104) 05/13/18 19:30 Total Protein 6.6 gm/dL (6.0-8.3) 05/13/18 19:30 Albumin 4.0 gm/dL (4.2-5.5) L 05/13/18 19:30 Globulin 2.6 gm/dL 05/13/18 19:30 Albumin/Globulin Ratio 1.5 (1.0-1.8) 05/13/18 19:30 Triglycerides 89 mg/dL (<150) 05/14/18 06:30 Cholesterol 159 mg/dL (<200) 05/14/18 06:30 LDL Cholesterol Direct 116 mg/dL (75-193) 05/14/18 06:30 HDL Cholesterol 39 mg/dL (23-92) 05/14/18 06:30 Urine Source CLEAN C 05/13/18 20:30 Urine Color YELLOW 05/13/18 20:30 Urine Clarity CLEAR (CLEAR) 05/13/18 20:30 Urine pH 6.5 (4.6 - 8.0) 05/13/18 20:30 Ur Specific [place] 1.015 (1.005-1.030) 05/13/18 20:30 Urine Protein NEGATIVE mg/dL (NEGATIVE) 05/13/18 20:30 Urine Glucose (UA) >=1000 mg/dL (NEGATIVE) H 05/13/18 20:30 Urine Ketones NEGATIVE mg/dL (NEGATIVE) 05/13/18 20:30 Urine Blood NEGATIVE (NEGATIVE) 05/13/18 20:30 Urine Nitrate NEGATIVE (NEGATIVE) 05/13/18 20:30 Urine Bilirubin NEGATIVE (NEGATIVE) 05/13/18 20:30 Urine Urobilinogen 0.2 E.U./dL (0.2 - 1.0) 05/13/18 20:30 Ur Leukocyte Esterase NEGATIVE (NEGATIVE) 05/13/18 20:30 Urine WBC 0-2 /hpf (0-5) 05/13/18 20:30 Ur Epithelial Cells OCCASIONAL /lpf (FEW) 05/13/18 20:30 Urine Bacteria OCCASIONAL /hpf (NONE SEEN) 05/13/18 20:30 Urine Mucus FEW /lpf (FEW) 05/13/18 20:30 Urine Opiates Screen NEGATIVE (NEGATIVE) 05/13/18 20:30 Urine Methadone Screen NEGATIVE (NEGATIVE) 05/13/18 20:30 Acetaminophen < 10.0 ug/mL (10.0-30.0) L 05/13/18 19:30 Ur Barbiturates Screen NEGATIVE (NEGATIVE) 05/13/18 20:30 Ur Tricyclics Screen NEGATIVE (NEGATIVE) 05/13/18 20:30 Ur Phencyclidine Scrn NEGATIVE (NEGATIVE) 05/13/18 20:30 Amphetamines Screen NEGATIVE (NEGATIVE) 05/13/18 20:30 U Methamphetamines Scrn NEGATIVE (NEGATIVE) 05/13/18 20:30 U Benzodiazepines Scrn NEGATIVE (NEGATIVE) 05/13/18 20:30 U Cocaine Metab Screen NEGATIVE (NEGATIVE) 05/13/18 20:30 U Cannabinoids Screen NEGATIVE (NEGATIVE) 05/13/18 20:30 - Physical Exam Vitals and I&O: Vital Signs Temp 97 F 05/20/18 06:22 Pulse 70 05/20/18 06:22 Resp 19 05/20/18 06:22 BP 116/69 05/20/18 06:22 Pulse Ox 96 05/20/18 06:22 Intake & Output 05/19/18 05/20/18 05/20/18 18:59 06:59 18:59 Intake Total 1200 240 Balance 1200 240 Intake: Oral 1200 240 Other: # Voids 1 # Bowel Movements 1 1 Active Medications: Current Medications Acetaminophen (Tylenol) 650 mg PO Q4H PRN PRN Reason: Pain (Mild) Stop: 07/13/18 01:39 Allopurinol (Zyloprim) 300 mg PO DAILY COUNT INCLUDES THE [facility] Stop: 07/13/18 08:59 Last Admin: 05/20/18 08:55 Dose: 300 mg Aspirin (Aspirin Chewable) 81 mg PO DAILY COUNT INCLUDES THE [facility] Stop: 07/13/18 08:59 Last Admin: 05/20/18 08:57 Dose: 81 mg Carbidopa/Levodopa (Sinemet 25mg-100 Mg) 1 tab PO QID COUNT INCLUDES THE [facility] Stop: 07/13/18 08:59 Last Admin: 05/20/18 08:57 Dose: 1 tab Docusate Sodium (Colace) 100 mg PO BID COUNT INCLUDES THE [facility] Stop: 07/13/18 08:59 Last Admin: 05/20/18 08:57 Dose: 100 mg Escitalopram Oxalate (Lexapro) 7.5 mg PO DAILY COUNT INCLUDES THE [facility]; Protocol Stop: 07/17/18 08:59 Last Admin: 05/20/18 08:56 Dose: 7.5 mg Insulin Aspart (Novolog Insulin Sliding Scale) 0 units SUBQ BIDAC COUNT INCLUDES THE [facility]; Protocol Stop: 07/13/18 07:29 Last Admin: 05/20/18 06:32 Dose: Not Given Lorazepam (Ativan) 0.5 mg PO Q4HR PRN; Protocol PRN Reason: Anxiety Stop: 06/12/18 22:55 Magnesium Hydroxide (Milk Of Magnesia) 30 ml PO DAILY PRN PRN Reason: Constipation Stop: 07/13/18 01:31 Metformin HCl (Glucophage) 1,000 mg PO BIDWM COUNT INCLUDES THE [facility] Stop: 07/13/18 07:59 Last Admin: 05/20/18 08:55 Dose: 1,000 mg Miscellaneous (Canagliflozin [Invokana]) 100 mg PO DAILY COUNT INCLUDES THE [facility] Stop: 07/13/18 08:59 Rivastigmine (Exelon 4.6 Mg/24 Hr Tdm) 1 patch TD DAILY COUNT INCLUDES THE [facility] Stop: 07/13/18 08:59 Last Admin: 05/20/18 08:59 Dose: 1 patch Zolpidem Tartrate (Ambien) 5 mg PO HS PRN PRN Reason: Insomnia Stop: 07/12/18 22:55 Last Admin: 05/16/18 21:11 Dose: 5 mg General: No acute distress HEENT: Atraumatic Neck: Supple Cardiovascular: Regular rate, Normal S1, Normal S2 Lungs: Clear to auscultation Abdomen: Bowel sounds Assessment/Plan - Problem List Patient Problems: All Active Problems SUICIDAL IDEATION/WRIST LACERATIONS (Acute) - Plan Plan: as pre psych will monitor Nutritional Asmnt/Malnutr-PDOC - Dietary Evaluation Malnutrition Findings (Please click <Entered> for more info): Nutritional Asmnt/Malnutrition Start: 05/17/18 14: 11 Text: Status: Complete Freq: Protocol: Document 05/17/18 14:12 [email or web address] (Rec: 05/17/18 14:20 [email or web address]) Nutritional Asmnt/Malnutrition Patient General Information Nutritional Screening Moderate Risk Diagnosis suicidal ideation Pertinent Medical Hx/Surgical Hx DM, parkinson Subjective Information Pt seen sleeping in bed at time of visit. Per EMR, PO intake 100%. Current Diet Order/ Nutrition Support low sodium, NCS Pertinent Medications colace, novolog, glucophage Pertinent Labs 05/13 na 134, Cr 0.6, alb 4.0, mg 1.8 05/14-05/17 POC 79-91 Nutritional Hx/Data Height 1.83 m Height (Calculated Centimeters) 182.9 Current Weight (lbs) 81.193 kg Weight (Calculated Kilograms) 81.2 Weight (Calculated Grams) 30870.0 [place] Body Weight 178 % [place] Body Weight 100 Body Mass Index (BMI) 24.3 GI Symptoms GI Symptoms None Last BM 05/16 Difficult in: None Skin Integrity/Comment: laceration to right wrist Current %PO Good (75-100%) Estimated Nutritional Goals BEE in Kcals: Using Current wt Calories/Kcals/Kg 25-30 Kcals Calculated Protein: Using Current wt Protein g/k Protein Calculated 81 Fluid: ml Nutritional Problem 1. Problem Problem altered nutrition related labs Etiology electrolytes imbalance Signs/Symptoms: Na 134, mg 1.8 Malnutrition Alert Is there a minimum of two criteria No selected? Query Text:Check all the applicable criteria. A minimum of two criteria are recommended for diagnosis of either severe or non-severe malnutrition. Malnutrition Related to Morbid Obesity Malnutrition related to morbid obesity No Intervention/Recommendation Comments 1. Continue with low sodium and NCS diet as ordered. May consider discontinue NCS diet if glucose continue WNL. 2. Monitor PO intake, wt, labs and skin integrity 3. F/U as low risk in 7 days, 05/24 Expected Outcomes/Goals Expected Outcomes/Goals 1. PO intake to meet at least 75% of nutritional needs. 2. Wt stability, skin to remain intact, labs to approach WNL.
--- NOTE | 2018-05-20 21:27 | Progress Notes ---
DATE: 05/19/2018 SUBJECTIVE: The patient was evaluated on 05/19/2018. Covering for DrNitin ____. He is a 77-year-old male who was brought in here very depressed with a history of diabetes and Parkinson's. The patient had cut his wrists bilaterally with severe depression. Today, on [id number] evaluation the patient feels very distraught and depressed, reported that he had lost everything ____ depression to his and felt very distraught because of it. MENTAL EXAMINATION: Depressed ____ engaging in self-injurious behaviors when he is chronically stressed. ASSESSMENT AND PLAN: The patient is status post suicide attempt by cutting his bilateral wrists. We will continue with primary psychiatry team plan and goal, which includes Celexa 7.5 mg, initiated yesterday at 7.5 mg and Ativan as needed as we continue targeting the patient's severe depression symptoms. JOB# [id number]
[2018-05-21] MEDS: INSULIN ASPART SLIDING SCALE 100 UNITS/ML UNIT SUBQ SCH ×2 (06:33→16:38)
[2018-05-21] MEDS: Aspirin 81mg Chewable Tab PO SCH (08:08)
[2018-05-21] MEDS: Escitalopram Oxalate 5 mg Tab PO SCH (08:08)
[2018-05-21] MEDS: Rivastigmine 4.6 mg/24 hr Tdm TD SCH (08:08)
--- NOTE | 2018-05-21 16:03 | General Progress Note ---
Subjective - Review of Systems Events since last encounter: patient states feeling better Objective - Results Result Diagrams: 05/13/18 19:30 05/13/18 19:30 Recent Labs: Laboratory Last Values WBC 6.7 Th/cmm (4.8-10.8) 05/13/18 19:30 RBC 4.61 Mil/cmm (3.80-5.80) 05/13/18 19:30 Hgb 14.4 gm/dL (12-16) 05/13/18 19:30 Hct 44.1 % (41.0-60) 05/13/18 19:30 MCV 95.8 fl (80-99) 05/13/18 19:30 MCH 31.3 pg (27.0-31.0) H 05/13/18 19:30 MCHC Differential 32.7 pg (28.0-36.0) 05/13/18 19:30 RDW 14.7 % (11.5-20.0) 05/13/18 19:30 Plt Count 215 Th/cmm (150-400) 05/13/18 19:30 MPV 7.1 fl 05/13/18 19:30 Neutrophils % 68.8 % (40.0-80.0) 05/13/18 19:30 Lymphocytes % 18.6 % (20.0-50.0) L 05/13/18 19:30 Monocytes % 8.7 % (2.0-10.0) 05/13/18 19:30 Eosinophils % 2.4 % (0.0-5.0) 05/13/18 19:30 Basophils % 1.5 % (0.0-2.0) 05/13/18 19:30 Sodium 134 mEq/L (136-145) L 05/13/18 19:30 Potassium 4.0 mEq/L (3.5-5.1) 05/13/18 19:30 Chloride 101 mEq/L (98-107) 05/13/18 19:30 Carbon Dioxide 24.3 mEq/L (21.0-31.0) 05/13/18 19:30 Anion Gap 12.7 (7.0-16.0) 05/13/18 19:30 BUN 21 mg/dL (7-25) 05/13/18 19:30 Creatinine 0.6 mg/dL (0.7-1.3) L 05/13/18 19:30 Est GFR ( Amer) TNP 05/13/18 19:30 Est GFR (Non-Af Amer) TNP 05/13/18 19:30 BUN/Creatinine Ratio 35.0 05/13/18 19:30 Glucose 134 mg/dL (70-105) H 05/13/18 19:30 POC Glucose 85 MG/DL (70 - 105) 05/21/18 06:26 Calcium 9.4 mg/dL (8.6-10.3) 05/13/18 19:30 Phosphorus 3.0 mg/dL (2.5-5.0) 05/13/18 19:30 Magnesium 1.8 mg/dL (1.9-2.7) L 05/13/18 19:30 Total Bilirubin 0.3 mg/dL (0.3-1.0) 05/13/18 19:30 AST 12 U/L (13-39) L 05/13/18 19:30 ALT 5 U/L (7-52) L 05/13/18 19:30 Alkaline Phosphatase 81 U/L (34-104) 05/13/18 19:30 Total Protein 6.6 gm/dL (6.0-8.3) 05/13/18 19:30 Albumin 4.0 gm/dL (4.2-5.5) L 05/13/18 19:30 Globulin 2.6 gm/dL 05/13/18 19:30 Albumin/Globulin Ratio 1.5 (1.0-1.8) 05/13/18 19:30 Triglycerides 89 mg/dL (<150) 05/14/18 06:30 Cholesterol 159 mg/dL (<200) 05/14/18 06:30 LDL Cholesterol Direct 116 mg/dL (75-193) 05/14/18 06:30 HDL Cholesterol 39 mg/dL (23-92) 05/14/18 06:30 Urine Source CLEAN C 05/13/18 20:30 Urine Color YELLOW 05/13/18 20:30 Urine Clarity CLEAR (CLEAR) 05/13/18 20:30 Urine pH 6.5 (4.6 - 8.0) 05/13/18 20:30 Ur Specific [place] 1.015 (1.005-1.030) 05/13/18 20:30 Urine Protein NEGATIVE mg/dL (NEGATIVE) 05/13/18 20:30 Urine Glucose (UA) >=1000 mg/dL (NEGATIVE) H 05/13/18 20:30 Urine Ketones NEGATIVE mg/dL (NEGATIVE) 05/13/18 20:30 Urine Blood NEGATIVE (NEGATIVE) 05/13/18 20:30 Urine Nitrate NEGATIVE (NEGATIVE) 05/13/18 20:30 Urine Bilirubin NEGATIVE (NEGATIVE) 05/13/18 20:30 Urine Urobilinogen 0.2 E.U./dL (0.2 - 1.0) 05/13/18 20:30 Ur Leukocyte Esterase NEGATIVE (NEGATIVE) 05/13/18 20:30 Urine WBC 0-2 /hpf (0-5) 05/13/18 20:30 Ur Epithelial Cells OCCASIONAL /lpf (FEW) 05/13/18 20:30 Urine Bacteria OCCASIONAL /hpf (NONE SEEN) 05/13/18 20:30 Urine Mucus FEW /lpf (FEW) 05/13/18 20:30 Urine Opiates Screen NEGATIVE (NEGATIVE) 05/13/18 20:30 Urine Methadone Screen NEGATIVE (NEGATIVE) 05/13/18 20:30 Acetaminophen < 10.0 ug/mL (10.0-30.0) L 05/13/18 19:30 Ur Barbiturates Screen NEGATIVE (NEGATIVE) 05/13/18 20:30 Ur Tricyclics Screen NEGATIVE (NEGATIVE) 05/13/18 20:30 Ur Phencyclidine Scrn NEGATIVE (NEGATIVE) 05/13/18 20:30 Amphetamines Screen NEGATIVE (NEGATIVE) 05/13/18 20:30 U Methamphetamines Scrn NEGATIVE (NEGATIVE) 05/13/18 20:30 U Benzodiazepines Scrn NEGATIVE (NEGATIVE) 05/13/18 20:30 U Cocaine Metab Screen NEGATIVE (NEGATIVE) 05/13/18 20:30 U Cannabinoids Screen NEGATIVE (NEGATIVE) 05/13/18 20:30 - Physical Exam Vitals and I&O: Vital Signs Temp 98.1 F 05/21/18 06:39 Pulse 73 05/21/18 06:39 Resp 20 05/21/18 06:39 BP 119/58 05/21/18 06:39 Pulse Ox 93 05/21/18 06:39 Intake & Output 05/20/18 05/21/18 05/21/18 18:59 06:59 18:59 Intake Total 1000 480 Balance 1000 480 Intake: Oral 1000 480 Other: # Voids 4 3 # Bowel Movements 1 0 Active Medications: Current Medications Acetaminophen (Tylenol) 650 mg PO Q4H PRN PRN Reason: Pain (Mild) Stop: 07/13/18 01:39 Allopurinol (Zyloprim) 300 mg PO DAILY [facility] Stop: 07/13/18 08:59 Last Admin: 05/21/18 08:07 Dose: 300 mg Aspirin (Aspirin Chewable) 81 mg PO DAILY [facility] Stop: 07/13/18 08:59 Last Admin: 05/21/18 08:08 Dose: 81 mg Carbidopa/Levodopa (Sinemet 25mg-100 Mg) 1 tab PO QID [facility] Stop: 07/13/18 08:59 Last Admin: 05/21/18 13:36 Dose: 1 tab Docusate Sodium (Colace) 100 mg PO BID [facility] Stop: 07/13/18 08:59 Last Admin: 05/21/18 08:07 Dose: 100 mg Escitalopram Oxalate (Lexapro) 7.5 mg PO DAILY [facility]; Protocol Stop: 07/17/18 08:59 Last Admin: 05/21/18 08:08 Dose: 7.5 mg Insulin Aspart (Novolog Insulin Sliding Scale) 0 units SUBQ BIDAC [facility]; Protocol Stop: 07/13/18 07:29 Last Admin: 05/21/18 06:33 Dose: Not Given Lorazepam (Ativan) 0.5 mg PO Q4HR PRN; Protocol PRN Reason: Anxiety Stop: 06/12/18 22:55 Magnesium Hydroxide (Milk Of Magnesia) 30 ml PO DAILY PRN PRN Reason: Constipation Stop: 07/13/18 01:31 Metformin HCl (Glucophage) 1,000 mg PO BIDWM [facility] Stop: 07/13/18 07:59 Last Admin: 05/21/18 08:07 Dose: 1,000 mg Rivastigmine (Exelon 4.6 Mg/24 Hr Tdm) 1 patch TD DAILY [facility] Stop: 07/13/18 08:59 Last Admin: 05/21/18 08:08 Dose: 1 patch Zolpidem Tartrate (Ambien) 5 mg PO HS PRN PRN Reason: Insomnia Stop: 07/12/18 22:55 Last Admin: 05/20/18 21:00 Dose: 5 mg General: No acute distress HEENT: Atraumatic Neck: Supple Cardiovascular: Regular rate, Normal S1, Normal S2 Lungs: Clear to auscultation Abdomen: Bowel sounds Assessment/Plan - Problem List Patient Problems: All Active Problems SUICIDAL IDEATION/WRIST LACERATIONS (Acute) - Plan Plan: as pre psych will monitor Nutritional Asmnt/Malnutr-PDOC - Dietary Evaluation Malnutrition Findings (Please click <Entered> for more info): Nutritional Asmnt/Malnutrition Start: 05/17/18 14: 11 Text: Status: Complete Freq: Protocol: Document 05/17/18 14:12 [email or web address] (Rec: 05/17/18 14:20 [email or web address] [email or web address]) Nutritional Asmnt/Malnutrition Patient General Information Nutritional Screening Moderate Risk Diagnosis suicidal ideation Pertinent Medical Hx/Surgical Hx DM, parkinson Subjective Information Pt seen sleeping in bed at time of visit. Per EMR, PO intake 100%. Current Diet Order/ Nutrition Support low sodium, NCS Pertinent Medications colace, novolog, glucophage Pertinent Labs 05/13 na 134, Cr 0.6, alb 4.0, mg 1.8 05/14-05/17 POC 79-91 Nutritional Hx/Data Height 1.83 m Height (Calculated Centimeters) 182.9 Current Weight (lbs) 81.193 kg Weight (Calculated Kilograms) 81.2 Weight (Calculated Grams) 99692.0 [place] Body Weight 178 % [place] Body Weight 100 Body Mass Index (BMI) 24.3 GI Symptoms GI Symptoms None Last BM 05/16 Difficult in: None Skin Integrity/Comment: laceration to right wrist Current %PO Good (75-100%) Estimated Nutritional Goals BEE in Kcals: Using Current wt Calories/Kcals/Kg 25-30 Kcals Calculated Protein: Using Current wt Protein g/k Protein Calculated 81 Fluid: ml Nutritional Problem 1. Problem Problem altered nutrition related labs Etiology electrolytes imbalance Signs/Symptoms: Na 134, mg 1.8 Malnutrition Alert Is there a minimum of two criteria No selected? Query Text:Check all the applicable criteria. A minimum of two criteria are recommended for diagnosis of either severe or non-severe malnutrition. Malnutrition Related to Morbid Obesity Malnutrition related to morbid obesity No Intervention/Recommendation Comments 1. Continue with low sodium and NCS diet as ordered. May consider discontinue NCS diet if glucose continue WNL. 2. Monitor PO intake, wt, labs and skin integrity 3. F/U as low risk in 7 days, 05/24 Expected Outcomes/Goals Expected Outcomes/Goals 1. PO intake to meet at least 75% of nutritional needs. 2. Wt stability, skin to remain intact, labs to approach WNL.
--- NOTE | 2018-05-21 19:32 | Progress Notes ---
DATE: 05/21/2018 SUBJECTIVE: The patient is alert and oriented to person, place, situation, not sure about the month. The patient knows the year. The patient expressing he would like to leave, but concerns about his safety, even he tried cut himself, ongoing discord with . The patient is still negative towards , upset, depressed appearing, withdrawn, mostly in his room, apathetic, most accused himself, bouts of confusion noted. ASSESSMENT: The patient withdrawn, sleeping most of the time, still upset, ongoing safety concerns, but he does seem to be showing signs of improvement. PLAN: We will continue to monitor, titrate and adjust medications currently on 7.5 mg of the Lexapro. It is unclear what his discharge plan will be in regards to where he will go. JOB# [id number]
[2018-05-22] MEDS: INSULIN ASPART SLIDING SCALE 100 UNITS/ML UNIT SUBQ SCH ×2 (06:37→17:22)
[2018-05-22] MEDS: Rivastigmine 4.6 mg/24 hr Tdm TD SCH (08:07)
[2018-05-22] MEDS: Escitalopram Oxalate 5 mg Tab PO SCH (08:07)
[2018-05-22] MEDS: Aspirin 81mg Chewable Tab PO SCH (08:07)
--- NOTE | 2018-05-22 09:34 | Progress Notes ---
DATE: 05/20/2018 SUBJECTIVE: The patient was seen and evaluated. The patient's chart reviewed. ____ Dr. Diallo covering for Dr. Henley. Today on [id number] evaluation, the patient denies having side effects of medication. Reports fair sleep, also does report feeling overwhelmed, and it is stressful because he feels so depressed. His dare him to hurt himself. MENTAL STATUS EXAMINATION: Depressed, melancholic with poor insight, judgment, taking responsibility ____. ASSESSMENT AND PLAN: ____ 77-year-old male with a history of severe depression with status post bilateral ____, unable to formulate a plan as he continues with poor insight in regards to his illness. [facility]# [id number]
--- NOTE | 2018-05-23 02:39 | Progress Notes ---
DATE: 05/22/2018 SUBJECTIVE: The patient came to the hospital, tried to cut himself, kill himself; oriented to name, place, situation, year, not month. The patient seems to be improving, approaching his baseline. The patient seems calmer, no family support. Family seems to be quite estranged from the . The patient is still negative towards , states that it is usual, that he has no contact with his family. The patient is very upset about this, is still depressed, withdrawn, mostly in his bed, mostly in his room. Staff noting some improvement, seems to be calmer, more cooperative. ASSESSMENT: The patient seems calmer, likely approaching his baseline, no longer talking about suicide. PLAN: We will err on the side of caution, monitor for further 24 hours to make sure the patient is consistently devoid of any suicidal symptoms. JOB# [id number]
== END 2018-05-22 18:35 | DRG 885 ==
LOC: ER 18:44 → GERO 21:52
PROVIDERS: ADMIT Psychiatry & Neurology Psychiatry; ATTEND Psychiatry & Neurology Psychiatry
DX: F32.2 Major depressive disorder, single episode, severe without psychotic features (principal); T14.91XA Suicide attempt, initial encounter; E11.9 Type 2 diabetes mellitus without complications; G20 Parkinson's disease; F41.9 Anxiety disorder, unspecified; I10 Essential (primary) hypertension; Z66 Do not resuscitate; I25.10 Atherosclerotic heart disease of native coronary artery without angina pectoris; Z88.0 Allergy status to penicillin; Z88.1 Allergy status to other antibiotic agents; Z88.8 Allergy status to other drugs, medicaments and biological substances; Z79.84 Long term (current) use of oral hypoglycemic drugs; X78.8XXA Intentional self-harm by other sharp object, initial encounter; Y92.89 Other specified places as the place of occurrence of the external cause; Y99.8 Other external cause status; Y93.89 Activity, other specified
CPT/HCPCS: 36415-UA; 80053-TC; 80061-TC; 80307; 80329-TC; 81001-TC; 82948-90; 83036-90; 83735-TC; 84100-TC; 85025-TC; J1815; Z7610